=== PATIENT | female | born 1995 | race Caucasian/White ===

== ENCOUNTER 2017-08-20 02:27 | Day surgery (SDC) | payer OTHER ==
[~2017-08-20] VITALS: Ht 170.2 cm; Wt 92.1 kg
[~2017-08-20 02:27] MED LIST: ALBU8.5H IH; ALPR-429 PO; ETON68IM SQ; GOLYTE PO; IBUP800T37 PO; PROP60TA15 PO; SUMA50TA35 PO
[2017-08-20] MEDS ORDERED: PROPOFOL EMUL(*) 10MG/ML 20 ML 20 ML ONE ×2 (06:48→10:05)
[2017-08-20 07:45] VITALS: BP 128/75
[2017-08-20] MEDS ORDERED: LIDOCAINE/SOD BICARB 8.4% SYR ID ONE (08:00)
[2017-08-20] MEDS ORDERED: MIDAZOLAM 2 MG/2 ML VIAL IVP PRN (08:00)
[2017-08-20] MEDS ORDERED: NORMOSOL R SOLN(*) 1000 ML BAG 1,000 ML IV PRN (08:00)
[2017-08-20 10:21] VITALS: BP 93/52
--- NOTE | 2017-08-20 10:31 | Short(Outpt) Discharge Summary ---
Discharge Summary Reason for Hosp/Final Diag: (1) Family history of colon cancer Hospital Course & Plan: Colonoscopy completed without problems. (2) Family history of colonic polyps Departure Discharge to: Home, Self Care Discharge Instructions Home Meds Active Scripts Peg/Electrolytes (GOLYTELY SOLUTION) 4,000 Ml Soln, 1 GAL PO ONCE, #1 GAL 0 Refills Prov:NÉSTOR HUNTER MD 07/27/17 Reported Medications Alprazolam (XANAX) 0.5 Mg Tablet, 1 TAB PO DAILY Y for ANXIETY, TAB 08/18/17 Ibuprofen (IBUPROFEN) 800 Mg Tablet, 1 TAB PO Q8H Y for PAIN, TAB 07/28/17 Etonogestrel (NEXPLANON) 68 Mg Implant, 68 MG SQ DIRECTED, IMPLANT 07/28/17 Albuterol Sulfate 90 Mcg/Act (PROAIR HFA 90 MCG/ACT) 8.5 Gm Hfa.aer.ad, 2 PUFF IH PRN, INHALER 07/28/17 Sumatriptan Succinate (SUMATRIPTAN SUCCINATE) 50 Mg Tablet, 50 MG PO PRN, #5 TAB 07/28/17 Propranolol Hcl (PROPRANOLOL HCL) 60 Mg Tablet, 60 MG PO BID 07/28/17 Diet: Regular Activity: As Tolerated Special Instructions: Your colonoscopy was completed without any problems and your prep was excellent (Good Job!!). I recommend that you have another colonoscopy in 5 years due to your family history. Your abdominal CT scan revealed that your gallbladder looked contracted which may not be anything to worry about but I'll have Monica, my clinic nurse, give you a call next week to schedule a gallbladder ultrasound and then we'll call with results of the ultrasound. NÉSTOR HUNTER MD Aug 20, 2017 10:31
[2017-08-20 10:32] VITALS: BP 108/70
[2017-08-20 10:52] VITALS: BP 126/82
[2017-08-20 11:05] VITALS: BP 107/90
[2017-08-20 11:07] VITALS: BP 114/75
== END 2017-08-20 11:25 ==
LOC: OR 02:27
PROVIDERS: ATTEND Surgery
DX: Z12.11 Encounter for screening for malignant neoplasm of colon (principal); Z80.0 Family history of malignant neoplasm of digestive organs
CPT/HCPCS: 45378; 81025; J2704

== ENCOUNTER → 2017-09-01 | Outpatient (CLI) | payer OTHER ==
--- NOTE | 2017-09-01 10:14 | RADIOLOGY IMAGING REPORT ---
FACILITY: [facility] PATIENT NAME: Caryn Grissom : 1995 MR: [id number] V: [id number] EXAM DATE: ORDERING PHYSICIAN: NÉSTOR HUNTER TECHNOLOGIST: Location: [facility] Patient: Caryn Grissom : 1995 Visit/Account:[id number] Date of Sevice: 09/01/2017 GALLBLADDER HISTORY: Worsening pain, contracted gallbladder on CT COMPARISON: CT August 03, 2017 FINDINGS: Gallbladder: Unremarkable; no stones or sludge. Liver: Negative. Common duct: Normal, 2.2 mm diameter. Pancreas: Partially obscured by bowel, visualized aspects unremarkable. Right kidney: Unremarkable as imaged measuring 9.2 cm in length Upper abdominal aorta and IVC: Patent. Ascites: None visualized. IMPRESSION: Unremarkable right upper quadrant ultrasound Report Dictated By: Meka Waite MD at 09/01/2017 10:08 AM Report E-Signed By: Meka Waite MD at 09/01/2017 10:10 AM WSN:[email or web address]
== END ==
LOC: US 01:10
PROVIDERS: ATTEND Surgery
DX: R10.9 Unspecified abdominal pain (principal)
CPT/HCPCS: 76705

== ENCOUNTER 2017-09-08 04:13 | Day surgery (SDC) | payer OTHER ==
[~2017-09-08] VITALS: Ht 170.2 cm; Wt 90.7 kg
[2017-09-08 06:06] VITALS: BP 124/73
[2017-09-08] MEDS: NORMOSOL R SOLN(*) 1000 ML BAG 1,000 ML IV PRN ×3 (06:11→09:30)
[2017-09-08 06:25] LABS: PLATELET COUNT, AUTOMATED 194 K/uL (150-450)
[2017-09-08] MEDS ORDERED: ROPIVACAINE 0.2% 20 ML VIAL ONE (06:45)
[2017-09-08] MEDS ORDERED: fentaNYL CITR 100 MCG/2 ML AMP ONE ×3 (07:12→08:59)
[2017-09-08] MEDS ORDERED: PROPOFOL EMUL(*) 10MG/ML 20 ML 20 ML ONE (07:18)
[2017-09-08] MEDS ORDERED: LIDOCAINE 2% IV 100 MG/5ML SYR ONE (07:19)
[2017-09-08] MEDS ORDERED: ROCURONIUM BROM 10 MG/ML 5 ML ONE (07:30)
[2017-09-08] MEDS ORDERED: ONDANSETRON 4 MG/2 ML VIAL ONE (07:33)
[2017-09-08] MEDS ORDERED: KETOROLAC 30 MG/ML VIAL ONE (07:33)
[2017-09-08] MEDS ORDERED: DEXAMETHASONE SOD 4 MG/ML VIAL ONE (07:33)
--- NOTE | 2017-09-08 07:35 | History & Physical ---
History of Present Illness Age of Patient: 22 : 0 Para or TPAL: 0 Chief Complaint Pelvic Pain History of Present Illness Pt is a 22 y/o G0 who presented to clinic in Early June with a chief complaint of lower abdominal pain/pelvic pain. Pt's symptoms at initial presentation were consistent with Endometritis and patient received Doxycycline po [id number] days. In follow up the patient had noted that her pain was improved but not gone. Pt underwent ultrasound that showed a Uterus that was 7.23 X3.78C3.67 cm. Normal left ovary with a slightly enlarged right ovary with a simple cyst. Pt had significant spasm on physical exam consistent with vaginismus that reproduced her pain, and was referred to Physical therapy. Pt also was referred to General Surgery who did a CT that was negative and Colonoscopy that was negative. Pt reports pain improved with PT and change of diet. Still having symptoms and desires to rule out/in endometriosis. History Obstetrical History: Nulligravid Past Medical History: Migraines Anxiety Allergies: Coded Allergies: meloxicam (Verified Allergy, Mild, RASH, 07/28/17) pumpkin (Verified Allergy, Unknown, 07/28/17) Social History: Denies X 3. Family History: Colon cancer Colonic polyps FH: diabetes mellitus FATHER FH: hypertension FATHER MOTHER Med Rec Home Meds Reported Medications Alprazolam (XANAX) 0.5 Mg Tablet, 1 TAB PO DAILY Y for ANXIETY, TAB 08/18/17 Ibuprofen (IBUPROFEN) 800 Mg Tablet, 1 TAB PO Q8H Y for PAIN, TAB 07/28/17 Etonogestrel (NEXPLANON) 68 Mg Implant, 68 MG SQ DIRECTED, IMPLANT 07/28/17 Albuterol Sulfate 90 Mcg/Act (PROAIR HFA 90 MCG/ACT) 8.5 Gm Hfa.aer.ad, 2 PUFF IH PRN, INHALER 07/28/17 Sumatriptan Succinate (SUMATRIPTAN SUCCINATE) 50 Mg Tablet, 50 MG PO PRN, #5 TAB 07/28/17 Propranolol Hcl (PROPRANOLOL HCL) 60 Mg Tablet, 60 MG PO BID 07/28/17 Review of Systems All Systems Reviewed/Normal: Yes, Except as Noted Constitutional: No Fever, No Weight Loss, No Weight Gain, No Chills, No Night Sweats, No Other Neurological: No Syncope, No Confusion, No Weakness, No Dizziness, No Slurred Speech, No Other Eyes: No Vision Change, No Loss of Vision, No Photophobia, No Other ENT: No Hearing Loss, No Sinus Congestion, No Sore Throat, No Ear Ache, No Tinnitus, No Other Cardiovascular: No Chest Pain, No Palpitations, No Orthostatic Hypotension, No Other Respiratory: No Shortness of Breath, No Cough, No Wheezing, No Other Gastrointestinal: No Nausea, No Vomiting, No Diarrhea, No Dysphagia, No Constipation, No Early Satiety, No Hematemesis, No Hematochezia, No Melena, No Abdominal Pain, No Other Genitourinary: No Dysuria, No Hematuria, No Urinary Incontinence, No Other Musculoskeletal: No Pain, No Sprain, No Strain, No Impaired Mobility, No Other Psychiatric: No Depression, No Anxiety, No Other Exam General Exam Vital Signs Vital Signs Date Time Temp Pulse Resp B/P (MAP) Pulse Ox O2 Delivery O2 Flow Rate FiO2 09/08/17 06:06 97.4 65 16 124/73 (90) 95 Room Air General Apperance: Alert/Awake/No Acute Distress Neuro: No Gross deficits Eyes: Normal Extraocular Movement & Vison, PERRLA ENT: Normal Cardiovascular: Regular Rate and Rhythm Respiratory: No Respiratory Distress, Clear to Auscultation Abdomen: Soft, Non-Tender, Non-Distended : Normal Musculoskeletal: No Weakness/Pain Integumentary: Skin Intact without Lesions or Rash Psychological: Alert & Oriented X3, Appropriate Mood & Affect Medical Decision Making Data Points Result Diagram: 09/08/17 0609 Pre-Admit Course Medical Record Review: Yes VTE Prophylasis: Adult Deep Vein Thrombosis/Pulmonary: No Assessment and Plan AUDIT OFFICER Assessment: Stable Problems: (1) Pelvic pain Status: Chronic Assessment & Plan: Proceed with Diagnostic Laparoscopy and possible removal of endometriosis as indicated. TANGELA LLOYD DO Sep 08, 2017 07:35
[2017-09-08] MEDS ORDERED: SUGAMMADEX SOD 200 MG/2 ML SDV ONE (07:59)
[2017-09-08] MEDS ORDERED: LR(*) 1000 ML BAG 1,000 ML IV ONE (08:34)
[2017-09-08] MEDS ORDERED: METOCLOPRAMIDE 10 MG/2 ML SDV IVP PRN (08:35)
[2017-09-08] MEDS ORDERED: PER PO (08:45)
[2017-09-08] MEDS ORDERED: IBUP800T37 PO (08:45)
--- NOTE | 2017-09-08 08:45 | Post Operative Note ---
Operative Note - [employer] Operative Day Date: Sep 08, 2017 Time: 08:34 Physicians Surgeon: Tangela Benoit DO Anesthesia: GET 20 cc 0.2% rupivicaine Diagnosis Pre-Op Diagnosis: 22 y/o G0 Pelvic pain Post-Op Diagnosis: same Procedure Findings: Normal 8 week size uterus. Normal fallopian tubes and ovaries bilaterally. No evidence of endometrosis in ovarian fossa or Infundibulopelvic ligament. Right uteral sacral ligament with august opacities that are raised (could be consistent with decidua). Bilateral uretral vermiculation noted. Normal Appendix. Normal/Smooth liver and galbladder. Procedure(s): Diagnostic Laparoscopy with Peritoneal biopsy Specimen Removed:(Maybe N/A): Peritoneal Biopsy right uteral sacral peritoneum. Complications: 0 known Fluids Fluids: 900 cc LR u/o 200 cc Estimated Blood Loss: minimal Dictated Date OP Note Dictated: Sep 08, 2017 TANGELA BENOIT DO Sep 08, 2017 08:44
--- NOTE | 2017-09-08 08:46 | OB/GYN Discharge Summary ---
Discharge Summary Reason for Hosp/Final Diag: (1) Pelvic pain Status: Chronic Lates Vital Signs Vital Signs Date Time Temp Pulse Resp B/P (MAP) Pulse Ox O2 Delivery O2 Flow Rate FiO2 09/08/17 06:06 97.4 65 16 124/73 (90) 95 Room Air Weight (Pounds): 200 Result Diagram: 09/08/17 0609 Condition: No Change Discharge: Home Home Meds Active Scripts Oxycodone/Acetaminophen (OXYCODONE/ACETAMINOPHEN 5MG/325 MG) 5 Mg/325 Mg Tab, 1- 2 TAB PO Q4H Y for PAIN, #30 TAB 0 Refills Prov:TANGELA LLOYD DO 09/08/17 Ibuprofen (IBUPROFEN) 800 Mg Tablet, 800 MG PO Q8H, #30 TAB 0 Refills Prov:TANGELA LLOYD DO 09/08/17 Reported Medications Alprazolam (XANAX) 0.5 Mg Tablet, 1 TAB PO DAILY Y for ANXIETY, TAB 08/18/17 Ibuprofen (IBUPROFEN) 800 Mg Tablet, 1 TAB PO Q8H Y for PAIN, TAB 07/28/17 Etonogestrel (NEXPLANON) 68 Mg Implant, 68 MG SQ DIRECTED, IMPLANT 07/28/17 Albuterol Sulfate 90 Mcg/Act (PROAIR HFA 90 MCG/ACT) 8.5 Gm Hfa.aer.ad, 2 PUFF IH PRN, INHALER 07/28/17 Sumatriptan Succinate (SUMATRIPTAN SUCCINATE) 50 Mg Tablet, 50 MG PO PRN, #5 TAB 07/28/17 Propranolol Hcl (PROPRANOLOL HCL) 60 Mg Tablet, 60 MG PO BID 07/28/17 [facility] [phone], Dr. Lloyd [phone] Follow up in: 2 wks PO Discharge Diet: As Tolerates, Increase Fluid Intake Discharge Activity: As Tolerates, Pelvic Rest TANGELA LLOYD DO Sep 08, 2017 08:46
[2017-09-08] MEDS ORDERED: IBUPROFEN 800 MG TAB PO SCH (09:00)
[2017-09-08] MEDS ORDERED: MIDAZOLAM 2 MG/2 ML VIAL IVP PRN (09:15)
[2017-09-08] MEDS ORDERED: FAMOTIDINE 20 MG TAB PO ONE (09:15)
[2017-09-08] MEDS ORDERED: LIDOCAINE/SOD BICARB 8.4% SYR ID ONE (09:15)
[2017-09-08 10:00] VITALS: BP 114/67
[2017-09-08 10:15] VITALS: BP 102/67
[2017-09-08 10:30] VITALS: BP 103/66
[2017-09-08 10:45] VITALS: BP 103/62
[2017-09-08 11:06] VITALS: BP_SYST 105; BP_SYST 107; BP_DIAS 80; BP_DIAS 82
--- NOTE | 2017-09-08 15:30 | OPERATIVE REPORT 1 ---
EVENT DATE: September 08, 2017 SURGEON: Tito Benoit DO ANESTHESIOLOGIST: Freddie Damon MD ANESTHESIA: General endotracheal intubation with 20 mL of 0.2% ropivacaine for local. PREOPERATIVE DIAGNOSES 1. A 22-year-old zero. 2. Pelvic pain. POSTOPERATIVE DIAGNOSES 1. A 22-year-old zero. 2. Pelvic pain. PROCEDURE PERFORMED Diagnostic laparoscopy with peritoneal biopsy. FINDINGS Normal eight weeks sized uterus. Normal fallopian tubes and ovaries bilaterally. No evidence of endometriosis in the ovarian fossae or infundibulopelvic. Right uterosacral ligament with august opacities that are raised. This could be consistent with decidua effect. Biopsy was taken of the right uterosacral ligament. Bilateral ureteral vermiculation noted. Vermiform appendix. Normal smooth liver and normal gallbladder. PATHOLOGY Peritoneal biopsy from the right uterosacral ligament, peritoneum. ESTIMATED BLOOD LOSS Minimal. INTRAVENOUS FLUIDS Lactated Ringer's 900 mL. URINE OUTPUT 200 mL COMPLICATIONS None known. CONDITION Stable to PACU, then to recovery room. INDICATIONS AND CONSENT The patient is a 22-year-old zero who presented in early June with the chief complaint of pelvic pain and middle abdominal pain. The patient's symptoms at times were consistent with endometritis, so she was given doxycycline for approximately two weeks. She returned, noting the pain was slightly improved, but not significantly improved. She underwent an ultrasound which showed a normal uterus and normal ovaries with a physiological cyst on the right ovary. The patient then proceeded for physical therapy secondary to exam consistent with vaginismus. She underwent physical therapy at [facility]. She also had a general surgery referral. The general surgeon performed a CT scan as well as a colonoscopy that were both negative. The patient continued to have abdominal pain, but does report that since physical therapy and changes in diet, the patient has noticed improvement in her overall health and pain, but still has pain that is what she describes as manageable. She desires to have a laparoscopy to rule out any possibility of endometriosis. The patient signed the appropriate consents and was taken to the operating room. DESCRIPTION OF PROCEDURE The patient was taken to the operating room where she was placed in the dorsal supine position. Once general endotracheal intubation was achieved, the patient was then placed in the dorsal lithotomy position. She was then prepped and draped in the usual sterile manner. A sterile speculum was placed in the vagina, and the cervix was easily visualized and grasped with an Allis clamp. It sounded to 8 cm. The 8 HUY manipulator was then placed through the cervix. At this point, the legs were then taken out of lithotomy and placed in low lithotomy. Instruments were removed with the exception of the HUY manipulator. Gloves were then changed, and attention was then turned toward the abdomen. Ropivacaine 0.2% was used for anesthesia in the umbilicus. A 5 mm skin incision was then made with a scalpel. A Veress needle was then used to achieve pneumoperitoneum. Once pneumoperitoneum was achieved, a 5 mm trocar was then placed through the abdomen under direct laparoscopic visualization. Once in the abdomen, the underlying tissue was inspected and found to be without any injury from entry. At this time, the patient was then placed in the Trendelenburg position. Quick pictures of the liver and gallbladder were noted with a smooth liver and normal gallbladder. With the patient in the lithotomy, a quick inspection of the pelvis noted normal tubes and ovaries bilaterally, an 8 weeks size uterus, no signs of endometrial implants both anterior and posterior, as well as in the posterior cul-de-sac along the uterosacrals or in the ovarian fossae. With the normal laparoscopy, a biopsy was performed on the right uterosacral ligament secondary to some august opacities that were raised. Once biopsy was performed, Stephani was then placed over the biopsy site to help with hemostasis. With hemostasis noted, the patient was then taken out of the lithotomy position. She then had the pneumoperitoneum released. The trocars were removed. The skin incisions were then closed with a 4-0 Monocryl in an interrupted manner. The incisions then had Dermabond placed over them. The HUY uterine manipulator was then removed without any difficulty. The patient was then awoken and transferred to the recovery room in stable condition. DONAL
== END 2017-09-08 10:00 | disposition home or self-care (01) ==
LOC: OR 04:13
PROVIDERS: ATTEND Student in an Organized Health Care Education/Training Program
DX: R10.2 Pelvic and perineal pain (principal)
CPT/HCPCS: 36415; 49321; 84703; 85025; 88305; J1100; J1885; J2001; J2405; J2704; J2795; J3010

== ENCOUNTER → 2017-09-10 | Outpatient (CLI) | payer OTHER ==
[~2017-09-10] MED LIST changes: +PER PO; +SINCALIDE 5 MCG VIAL INJ ONE; +WATER STERILE(*) 10 ML VIAL 10 ML ONE
--- NOTE | 2017-09-10 14:43 | RADIOLOGY IMAGING REPORT ---
FACILITY: [facility] [place] PATIENT NAME: Caryn Grissom : 1995 MR: [id number] V: [id number] EXAM DATE: ORDERING PHYSICIAN: NÉSTOR HUNTER TECHNOLOGIST: Location: [facility] [place] Patient: Caryn Grissom : 1995 Visit/Account:[id number] Date of Sevice: 09/10/2017 HIDA W/CCK History: Abdominal pain TECHNIQUE: 6.3 mCi Tc99m mebrofenin was injected intravenously. Multiple sequential gamma camera cuco ges of the abdomen were obtained for 60 minutes. At that time, 3.6 mcg of Kinevac was injected intrav enously and an additional 30 minutes of gamma camera imaging data was acquired. A computer-generated region of interest was placed around the gallbladder and time-activity curve for the gallbladder was derived. The gallbladder ejection fraction was calculated. COMPARISON: None FINDINGS: Liver uptake and excretion: Normal Time to appearance: Bile ducts: 11 minutes. Gallbladder: 24 minutes. Duodenum: 12 minutes. Duodenal- gastric reflux / extravasation: None Post IV Kinevac: Patient symptoms: None Ejection fraction = 94 %, (normal range > 35%). IMPRESSION: 1. Patency of the common bile duct and cystic duct demonstrated. 2. Normal gallbladder ejection fraction at 94%. Report Dictated By: Jay Mcgraw MD at 09/10/2017 2:37 PM Report E-Signed By: Jay Mcgraw MD at 09/10/2017 2:39 PM WSN:[email or web address]
== END ==
LOC: NUC 04:23
PROVIDERS: ATTEND Surgery
DX: R10.30 Lower abdominal pain, unspecified (principal); R10.2 Pelvic and perineal pain; R93.2 Abnormal findings on diagnostic imaging of liver and biliary tract
CPT/HCPCS: 78226; A4216; A9537; J2805

== ENCOUNTER → 2018-06-23 | Outpatient (CLI) | payer OTHER ==
[~2018-06-23] MED LIST changes: +MEDR10TA57 PO; -SINCALIDE 5 MCG VIAL INJ ONE; -WATER STERILE(*) 10 ML VIAL 10 ML ONE
--- NOTE | 2018-06-23 13:14 | RADIOLOGY IMAGING REPORT ---
FACILITY: [facility] [place] PATIENT NAME: aCryn Grissom : 1995 MR: [id number] V: [id number] EXAM DATE: ORDERING PHYSICIAN: TANGELA LLOYD TECHNOLOGIST: Location: [facility] Patient: Caryn Grissom : 1995 Visit/Account:[id number] Date of Sevice: 06/23/2018 Transvaginal pelvic ultrasound INDICATION: Abnormal uterine bleeding. COMPARISON: None Available FINDINGS: Uterus measures 7.6 x 4.2 x 5.1 cm. Uterus is retroflexed. Double wall endometrial stripe measures up to 5 mm. There is no free fluid in the cul-de-sac. Urinary bladder is empty. Pelvic vessels appear unremarkable on this examination. Right ovary measures 3.1 x 1.6 x 2.4 cm and shows normal blood flow and contains several small follic les. Left ovary measures 4.3 x 3.8 x 3.5 cm and shows normal blood flow and contains a simple cyst measuri ng 3.1 x 2.9 x 3.1 cm IMPRESSION: 1. No acute findings. 2. Simple left ovarian cyst measuring up to 3.1 cm. Report Dictated By: Todd Dos Santos MD at 06/23/2018 1:09 PM Report E-Signed By: Todd Dos Santos MD at 06/23/2018 1:10 PM WSN:ROZ
== END ==
LOC: RAD 09:15
PROVIDERS: ATTEND Student in an Organized Health Care Education/Training Program
DX: N83.292 Other ovarian cyst, left side (principal); N93.9 Abnormal uterine and vaginal bleeding, unspecified

== ENCOUNTER → 2018-09-20 | Outpatient (CLI) | payer OTHER ==
[~2018-09-20] MED LIST changes: +EPIN0.3P15 IM; +NORE0.3536 PO
== END ==
LOC: LAB 10:51
PROVIDERS: ATTEND Student in an Organized Health Care Education/Training Program
DX: R53.83 Other fatigue (principal)
CPT/HCPCS: 36415; 83036; 84443; 85027

== ENCOUNTER → 2018-10-18 | Outpatient (CLI) | payer OTHER ==
--- NOTE | 2018-10-19 17:08 | RADIOLOGY IMAGING REPORT ---
FACILITY: [facility] [place] PATIENT NAME: LUIS VARGHESE : [id number] MR: [id number] V: [id number] EXAM DATE: [id number] ORDERING PHYSICIAN: TANGELA LLOYD TECHNOLOGIST: Helen Obrien RDMS PROCEDURE:US LEFT BREAST COMPARISON:None. INDICATIONS:Left axillary lump FINDINGS: In the Left axillary region just beneath the skin there is a small hypoechoic region measuring 4.4 x 1.2 x 5.4mm. This is apparently in the location of the patient's skin discoloration and palpable finding. The patient relayed to the technologist that she had a pimple in this location recently. This may represent the residual effects from the sebaceous cyst or pimple. A clinical follow-up recommended. DIAGNOSTIC CATEGORY 2--BENIGN FINDING. RECOMMENDATIONS: CLINICAL EVALUATION. IMPRESSION: BIRADS 2: Benign finding. A small ovoid hypoechoic region just beneath the skin in the Left axillary in the location of the patient's apparent palpable finding and skin discoloration. The patient reports a pimple in this location recently and this may represent residual findings. Clinical follow-up recommended. Dictated by: Meka Waite M.D. on 10/18/2018 at 17:06 Transcribed by: KEITH on 10/19/2018 at 8:45 Approved by: Meka Waite M.D. on 10/19/2018 at 17:06 [facility]
== END ==
LOC: US 01:59
PROVIDERS: ATTEND Student in an Organized Health Care Education/Training Program
DX: M79.89 Other specified soft tissue disorders (principal)